=== PATIENT | female | born 1980 | race Caucasian/White ===

== ENCOUNTER 2016-11-06 08:37 | Emergency (ER) | payer BC ==
[2016-11-06 08:48] VITALS: BP 125/63
[2016-11-06] MEDS ORDERED: KETOROLAC TROMETHAMINE 60 MG/2 ML VIAL IM ONE ×2 (09:32→09:33)
--- NOTE | 2016-11-06 09:46 | ERNOTE ---
Lower Extremity HPI - General Lower Extremities Pain: ankle: left Time Seen by Provider: 11/06/16 09:25 Source: patient Exam Limitations: no limitations - Immun/Allergies/Home Medications Immunizations: IMMUNIZATION HX Immunizations Up to Date Yes History of Influenza Vaccine Yes Allergies/Adverse Reactions: Allergies Allergy/AdvReac Type Severity Reaction Status Date / Time latex Allergy Verified 11/06/16 08:49 Home Medications: HOME MEDICATIONS Atorvastatin Calcium [Lipitor] 10 mg PO DAILY 07/16/14 [Last Taken Unknown] Control 07/16/14 [Last Taken Unknown] Proair Hfa 07/16/14 [Last Taken Unknown] Levothyroxine Sodium 11/06/16 [Last Taken Unknown] Meloxicam [Mobic] 15 mg PO DAILY 11/06/16 [Last Taken Unknown] oxyCODONE HCL/ACETAMINOPHEN [Percocet 5 MG/325 MG] 1 - 2 tab PO Q4H PRN #30 tab 11/06/16 [Last Taken Unknown] - History of Present Illness Narrative: Patient was going down the stairs carrying her three year old child when she stepped on a toy, lost her balance and fell down the last four steps going down on her buttock. She denies hitting her head, felt her left ankle pop and thinks that she briefly passed out from the pain. Her only pain is in the left ankle Date (Duration): 11/06/16 Time (Timing): 07:30 Occurred: this morning Location of Incident: home Method of Injury: Reports: fell Reason for Fall: Reports: lost balance Loss of Consciousness: Reports: brief (seconds) Associated Symptoms: Reports: unable to bear weight Other Injuries: Reports: none Subsequent Symptoms: Denies: sensory loss, numbness Review of Systems - Review of Systems Constitutional: Absent: recent illness, fever ENT: Absent: nose congestion, sore throat Respiratory: Absent: shortness of breath, cough, other Gastrointestinal/Abdominal: Absent: nausea, vomiting Genitourinary: Present: no symptoms reported Musculoskeletal: Present: See HPI Neurological: Absent: headache, weakness, numbness - Patient's Past Medical History Patient History - Medical: Fibromyalgia Patient History - Cardiac/Respiratory: Asthma, Bronchitis, Pneumonia Patient History - Cancer: No Hx of Cancer Patient History - Surgical Procedures: D & C Patient History - Other: None LMP (females 10-50): other - Social History Living Situations: home Psych History: Hx of Anxiety, Hx of Depression Smoking Status: Never smoker Alcohol Use: none Drug Use: none - Immunizations Immunizations Up to Date: Yes History of Influenza Vaccine: Yes Physical Exam - Physical Exam General Appearance: Present: wd/wn, alert, no apparent distress, obese Eye Exam: Normal inspection: bilateral, PERRL: bilateral Ears, Nose, Throat: Present: normal ENT inspection, normal pharynx, other - head : no tenderness, no signs of injury Neck: Present: normal inspection, nontender, full range of motion Respiratory: Present: no respiratory distress, normal breath sounds, no accessory muscle use, chest nontender, lungs clear Cardiovascular/Chest: Present: regular rate, rhythm, no murmur Peripheral Pulses: N=norm/S=strong/W=weak/B=bound/A=absent: Dorsalis-pedis (R): Normal, Dorsalis-pedis (L): Normal Gastrointestinal/Abdominal: Present: nontender, nondistended, soft Extremity Exam: Present: normal inspection, non-tender, no edema, other - except left ankle: tender over lateral and medial malleolus, echymosis and swelling over lateral malleolus and distal fibula Neurological Exam: Present: alert, oriented, normal mood/affect, no motor/ sensory deficits Skin Exam: Present: normal color, warm/dry ED Progress - Vital Signs Patient's Vital Signs:: I have reviewed the patient's vital signs. Vital Signs: Vital Signs 11/06/16 08:45 Temperature 36.0 C L Pulse Rate 78 Respiratory 16 Rate Blood Pressure 125/63 O2 Sat by Pulse 99 Oximetry - X-Ray X-Ray #1 X-Ray: tibula/fibula - distal fibular fracture Interpretation: Interp. by me X-Ray #2 X-Ray: ankle - distal fibular fracture Interpretation: Interp. by me - Progress/Reassessment Chief Complaint: Lower Extremity Pain/ Injury Progress Note-Subjective: 11/06/16 09:36 call to ortho,discussed with Dr Burgess, splint and elevated, follow up in clinic Wednesday 10:15 11/06/16 09:46 discussed plan with patient and family, they think they have crutches and maybe a walker available at home Departure Clinical Impression: Dislocation of distal end of left fibula Qualifiers: Encounter type: initial encounter Qualified Code(s): S93.05XA - Dislocation of left ankle joint, initial encounter - Departure Disposition: Home self-care Condition: Good Instructions: Ankle Fracture, [id number], Form - Excuse from Work, School, or Physical Activity Referrals: Dante Burgess MD [Staff Physician] - 11/09/16 10:15 am Prescriptions: oxyCODONE HCL/ACETAMINOPHEN [Percocet 5 MG/325 MG] 1 - 2 tab PO Q4H PRN #30 tab PRN Reason: Pain
--- OUTSIDE RECORDS SUMMARY | 2016-11-06 09:54 | XMS REPORT | Continuity of Care Document ---
:1980 Author Organization [facility] ([facility]) Address [address] [place] [address] Phone [phone] Care Team Providers Name Role Phone Mandy Don Primary Care Provider [phone] Source Comments This disclosure is being made pursuant to the Care Everywhere program, applicable federal and state laws, and may not contain all informaitonavailable regarding this patient.[facility] ([facility]) Active Allergies and Adverse Reactions Allergen Noted Date Severity Reactions Comments Latex, Natural Rubber 05/07/2011 Urticaria (Hives),Rash Current Medications Prescription Sig. Disp. Refills Start Date End Date Status ibuprofen 600 mg tablet Take 600 mg by mouth Active every 6 hours as needed. LORazepam 0.5 mg tablet Take 0.5 mg by mouth Active at bedtime. SERTraline 100 mg Take 100 mg by mouth Active tablet daily. oxyCODONE-acetaminophen Take 1 Tab by mouth Active (PERCOCET) 5-325 mg per every 4 hours as tablet needed. ALBUTEROL INH Use by inhalation as Active needed. MULTIVITAMIN PO Take 1 Tab by mouth Active daily. Active Problems Problem Noted Date Asthma 05/07/2011 Overview: Associated with cold exposure and seasonal allergies. Only needs prn inhaler. Depression with anxiety 05/07/2011 Fibromyalgia 05/07/2011 Social History Tobacco Use Types Packs/Day Years Used Date Never Smoker Smokeless Tobacco: Never Used Alcohol Use Drinks/Week oz/Week Comments No Last Filed Vital Signs Vital Sign Reading Time Taken Blood Pressure 134/87 05/07/2011 1:05 PM CDT Pulse 64 05/07/2011 1:05 PM CDT Temperature 36.1 C (97 F) 05/07/2011 1:05 PM CDT Respiratory Rate - - Height 1.6 m (5' 2.99") 05/07/2011 1:05 PM CDT Weight 127.2 kg (280 lb 6.8 oz) 05/07/2011 1:05 PM CDT Body Mass Index 49.69 05/07/2011 1:05 PM CDT Oxygen Saturation - - Plan of Care Health Maintenance Due Date Last Done Comments Hepatitis B Vaccine (1 of 3 - Primary Series) 1980 Tdap Vaccine 1992 Lipid Disorder Screening 1999 MMR Vaccine 1999 Td Vaccine 1999 Varicella Vaccine (1 of 2 - Adult - No Evidence of 1999 Immunity) Pneumococcal Vaccine (1 of 1 - PPSV23) 2000 Cervical Cancer Screening 2011 Influenza Vaccine: Seasonal (#1) 04/13/2016 Results from Last 3 Months Not on file
== END 2016-11-06 10:10 | disposition home or self-care (01) ==
LOC: ER 08:37
PROC: 2W3RX1Z Immobilization of Left Lower Leg using Splint (ICD-10-PCS; principal; 2016-11-06)
DX: S93.05XA Dislocation of left ankle joint, initial encounter (principal); W10.2XXA Fall (on)(from) incline, initial encounter; Y92.009 Unspecified place in unspecified non-institutional (private) residence as the place of occurrence of the external cause; M79.7 Fibromyalgia

== ENCOUNTER 2016-11-12 08:53 | Day surgery (SDC) | payer BC ==
[~2016-11-12 08:53] MED LIST: ACETAMINOPHEN 500 MG TABLET PO PRN; HYDROmorphone HCL 2 MG/ML VIAL IV PRN; MAG HYDROX/ALUMINUM HYD/SIMETH 30 ML UDC PO PRN; MAGNESIUM HYDROXIDE 30 ML UDC PO PRN; ONDANSETRON HCL/PF 2 MG/ML VIAL IV PRN; PROMETHAZINE HCL 25 MG in DEXTROSE 5 % IN WATER 50 ML IV PRN; RINGERS SOLUTION,LACTATED 1,000 ML IV PRN; ZOLPIDEM TARTRATE 5 MG TABLET PO PRN; ceFAZolin SODIUM 1 GM VIAL IV PRN; diphenhydrAMINE HCL 50 MG/ML VIAL IV PRN; oxyCODONE HCL/ACETAMINOPHEN 1 TAB TABLET PO PRN
--- OUTSIDE RECORDS SUMMARY | 2016-11-12 08:57 | XMS REPORT | Continuity of Care Document ---
:1980 Author Organization [facility] ([facility]) Address [address] [place] [address] Phone [phone] Care Team Providers Name Role Phone Mandy Don Primary Care Provider [phone] Source Comments This disclosure is being made pursuant to the Care Everywhere program, applicable federal and state laws, and may not contain all informaitonavailable regarding this patient.[facility] ([facility]) Active Allergies and Adverse Reactions Allergen Noted [...]
[2016-11-12] MEDS ORDERED: BUPIVACAINE HCL 50 ML VIAL IJ ONE ×2 (10:23)
[2016-11-12] MEDS ORDERED: RINGERS SOLUTION,LACTATED 1,000 ML IV ONE ×2 (10:24→12:02)
--- NOTE | 2016-11-12 11:45 | OR ---
Operative Report - Dictated Report Narrative: Date: 11/12/2016 Surgeon: Dante Burgess M.D. Correctional Officer Lieutenant: Marcus Beasley PA-C Anesthesia: General plus local Preoperative diagnosis: Left lateral malleolus fracture with deltoid disruption Postoperative diagnosis: Left bimalleolar ankle fracture equivalent with syndesmotic injury Procedure: 1. Open reduction internal fixation left lateral malleolus fracture with syndesmotic fixation 2. Intra-operative interpretation of radiographs. Estimated blood loss: None Tourniquet time: 96 Minutes at 350 millimeters mercury Retained implants: [employer]ley [employer] Nephew VLP 3.5 mm distal fibula plate with associated screws on the fibula, Beasley and nephew 3.5 mm stainless steel cortical screws 2 for syndesmotic fixation Specimens: None Complications: None Indications: Cherie is a 36-year-old female who tripped and fell resulting in a injury to the left ankle. They were seen in the emergency department with images obtained revealing the above injury. They were seen in clinic where the skin was examined and felt to be amenable to surgical treatment. The risks, benefits , and treatment options were discussed with the patient and the plan for reduction internal fixation was discussed. Risks were reviewed including , blood clots, nerve/tendon/blood vessel injury, malunion, nonunion, failure of implants, prominent implants, arthrosis, persistent pain, need for additional procedures. Procedure: After a timeout, anesthetic consisting of 2 grams of Ancef was administered. Beanbag and bone foam ramp was utilized in order bump the operative leg and a well-padded tourniquet was applied to the operative thigh. The splint was removed and the leg was pre-scrubbed with chlorhexidine then prepped and draped in a standard sterile fashion. Extremity was exsanguinated and tourniquet was inflated. Attention was then turned to the lateral malleolus. A posterior lateral incision was made over the fibular fracture. Subcutaneous dissection was carried down to the fibula protecting the superficial peroneal nerve. The fracture was identified and was noted to be comminuted, consisting of the proximal shaft, an anterior butterfly fragment, and the distal lateral malleolus. After preparing the bony edges, the anterior butterfly fragment was reduced to the proximal shaft and held in place with a 2.7 mm lag screw. The distal malleolar fragment was then reduced to the proximal shaft and butterfly fragment with 2 [id number] reduction clamps and held in place with a 2.7 mm lag screw. A [employer] Nephew VLP anatomic distal fibular locking plate was then placed as a neutralization plate to stabilize the fracture. Mini C-arm was used in order to confirm the appropriate placement and length of the implants. Care was taken to avoid placing screws into the ankle joint. The syndesmosis was stressed and was noted to be unstable with medial widening of the mortise. A large periarticular clamp was used to stabilize the syndesmosis with the ankle held at neutral. Two 3.5 mm cortical screws were then placed across the syndesmosis through the distal fibular locking plate grabbing 3 cortices each. These screws were placed slightly more distal than would be preferred due to the position of our plate, however fluoroscopy was used to confirm that we did not violate the ankle joint. The syndesmosis was again stressed using an external rotation stress test and noted to be stable with a symmetrical mortise. Fluoroscopic images were taken and the wound was thoroughly irrigated with normal saline. Subcutaneous tissue was repaired over the implants utilizing 0 Vicryl. The skin was closed utilizing 3-0 Vicryl in an interrupted deep dermal fashion followed by 4-0 nylon in an interrupted horizontal mattress fashion. Xeroform, 4 x 4's, soft roll, and a well-padded AO splint was applied. Patient was then awoken and transferred to postanesthesia care in stable condition. All sponge, sharp, and instrument counts were correct prior to closing the wounds.
[2016-11-12 14:47] VITALS: BP 148/88
[2016-11-12] MEDS ORDERED: SENNOSIDES/DOCUSATE SODIUM 1 TAB TABLET PO SCH (21:00)
== END 2016-11-12 08:54 | disposition home or self-care (01) ==
LOC: AMB 08:53
PROVIDERS: ATTEND Orthopaedic Surgery
PROC: 0QSK04Z Reposition Left Fibula with Internal Fixation Device, Open Approach (ICD-10-PCS; principal; 2016-11-12 09:00)
DX: S82.62XA Displaced fracture of lateral malleolus of left fibula, initial encounter for closed fracture (principal); S82.452A Displaced comminuted fracture of shaft of left fibula, initial encounter for closed fracture; S93.422A Sprain of deltoid ligament of left ankle, initial encounter; J45.909 Unspecified asthma, uncomplicated; M06.9 Rheumatoid arthritis, unspecified; M79.7 Fibromyalgia; F41.9 Anxiety disorder, unspecified; Z68.43 Body mass index [BMI] 50.0-59.9, adult; W10.8XXA Fall (on) (from) other stairs and steps, initial encounter

== ENCOUNTER 2017-02-02 09:28 | Day surgery (SDC) | payer BC ==
[~2017-02-02 09:28] MED LIST changes: -ACETAMINOPHEN 500 MG TABLET PO PRN; -HYDROmorphone HCL 2 MG/ML VIAL IV PRN; -MAG HYDROX/ALUMINUM HYD/SIMETH 30 ML UDC PO PRN; -MAGNESIUM HYDROXIDE 30 ML UDC PO PRN; -ONDANSETRON HCL/PF 2 MG/ML VIAL IV PRN; -PROMETHAZINE HCL 25 MG in DEXTROSE 5 % IN WATER 50 ML IV PRN; -ZOLPIDEM TARTRATE 5 MG TABLET PO PRN; -diphenhydrAMINE HCL 50 MG/ML VIAL IV PRN; -oxyCODONE HCL/ACETAMINOPHEN 1 TAB TABLET PO PRN
--- OUTSIDE RECORDS SUMMARY | 2017-02-02 09:30 | XMS REPORT | Continuity of Care Document ---
:1980 Author Organization [facility] ([facility]) Address [address] [place] [address] Phone [phone] Care Team Providers Name Role Phone Mandy Don Primary Care Provider [phone] Source Comments This disclosure is being made pursuant to the Care Everywhere program, applicable federal and state laws, and may not contain all informaitonavailable regarding this patient.[facility] ([facility]) Active Allergies and Adverse Reactions Allergen [...]
[2017-02-02] MEDS ORDERED: RINGERS SOLUTION,LACTATED 1,000 ML IV ONE (10:00)
[2017-02-02] MEDS ORDERED: BUPIVACAINE HCL/EPINEPHRINE 50 ML VIAL IJ ONE (11:15)
--- NOTE | 2017-02-02 11:43 | OR ---
Operative Report - Dictated Report Narrative: Date: 02/02/2017 Surgeon: Dante Burgess M.D. Buyer Tobacco Head: Marcus Beasley PA-C Anesthesia: General plus local Preoperative diagnosis: Left bimalleolar ankle fracture with syndesmotic injury. Postoperative diagnosis: Left bimalleolar ankle fracture with syndesmotic injury Procedure: Removal of syndesmotic screws left ankle Estimated blood loss: Minimal Tourniquet time: 15 Minutes at 325 millimeters mercury Specimens: None Complications: None Indications: Cherie is a 36-year-old female who sustained a left bimalleolar ankle fracture with syndesmotic injury approximately 3 months ago. She underwent open reduction internal fixation with syndesmotic fixation. She returns now for removal of her syndesmotic screws. Risks were reviewed including , blood clots, nerve/tendon/blood vessel injury, loss of reduction, retained implants, arthrosis, persistent pain, wound complications, and need for additional procedures. Procedure: After a timeout, anesthetic consisting of 2 g of Ancef was administered. Beanbag was utilized in order bump the operative leg and a well-padded tourniquet was applied to the operative thigh. The splint was removed and the leg was pre-scrubbed with chlorhexidine then prepped and draped in a standard sterile fashion. Extremity was exsanguinated and tourniquet was inflated. Attention was turned to her previous lateral malleolar incision. Mini C-arm was used to percutaneously locate the 2 syndesmotic screws and an incision approximately 2 cm in length was marked out over the previous incision. The skin was incised and sharp dissection was carried down to the level of the plate exposing the 2 screw heads. Mini C-arm was again used to confirm that these were the 2 syndesmotic screws. The 2 screws were removed and both intact. AP, mortise, and external rotation stress views were obtained which demonstrated removal of her syndesmotic screws as well as a stable ankle mortise. Subcutaneous tissue was repaired over the implants utilizing 3-0 Vicryl. The skin was closed utilizing 4-0 nylon. Xeroform, 4 x 4's, soft roll, and FATMATA wrap was applied. She was then placed back in her CAM walker. Patient was then awoken and transferred to postanesthesia care in stable condition. All sponge, sharp, and instrument counts were correct prior to closing the wounds.
[2017-02-02 13:05] VITALS: BP 146/72
== END 2017-02-02 09:29 | disposition home or self-care (01) ==
LOC: AMB 09:28
PROVIDERS: ATTEND Orthopaedic Surgery
PROC: 0QPH04Z Removal of Internal Fixation Device from Left Tibia, Open Approach (ICD-10-PCS; principal; 2017-02-02 10:15)
DX: S82.842A Displaced bimalleolar fracture of left lower leg, initial encounter for closed fracture (principal); J45.909 Unspecified asthma, uncomplicated; M06.9 Rheumatoid arthritis, unspecified; F41.9 Anxiety disorder, unspecified; M79.7 Fibromyalgia; Z68.43 Body mass index [BMI] 50.0-59.9, adult